=== PATIENT | male | born 1985 | race Hispanic/Latino ===

== ENCOUNTER 2020-05-27 18:50 | Emergency (ER) | payer SELFPAY ==
[2020-05-27] MEDS ORDERED: FAMOTIDINE 20MG TAB ONE (19:41)
[2020-05-27] MEDS ORDERED: DIPHENHYDRAMINE HCL 25 MG CAPSULE ONE (19:41)
[2020-05-27] MEDS ORDERED: SOLU-MEDROL 125MG VIAL ONE (19:41)
== END 2020-05-27 20:08 | disposition home or self-care (01) ==
LOC: EDH 18:50
DX: T63.441A Toxic effect of venom of bees, accidental (unintentional), initial encounter (principal); Z72.0 Tobacco use; Y92.89 Other specified places as the place of occurrence of the external cause
CPT/HCPCS: 96372; 99283; J2930; Q0163